=== PATIENT | male | born 1960 | race Caucasian/White ===

== ENCOUNTER 2017-03-24 21:08 | Emergency (ER) | payer BC | END 2017-03-24 21:37 | disposition home or self-care (01) | LOC: SCSER 21:08 | DX: B02.9 Zoster without complications (principal); I10 Essential (primary) hypertension | CPT/HCPCS: 99282 ==

== ENCOUNTER 2017-09-05 09:42 | Outpatient (CLI) | payer OTHER ==
--- NOTE | 2017-09-05 14:12 | PET ---
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 Exam requested for initial staging. TECHNIQUE: PET scanning with CT attenuation correction was performed from the vertex through the proximal thighs following the intravenous administration of 15.3 mCi [id number] in the left antecubital fossa. Imaging was performed after an uptake interval of 70 minutes. COMPARISON: None. CORRELATION: None. FINDINGS: There is increased uptake in the region of the epiglottis with a SUV of 5.5. No kurtis hypermetabolism seen in the neck, chest, abdomen or pelvis. No hypermetabolic pulmonary nodules, liver, adrenal, or skeletal lesions are identified. There is physiologic activity in the brain, GI and tracts. The CT scan used for attenuation correction demonstrates no evidence of pleural effusions or ascites. IMPRESSION: No evidence of metastatic disease. POS: [facility]
== END 2017-09-05 09:43 | disposition home or self-care (01) ==
LOC: PET 09:42
PROVIDERS: ATTEND Radiology Radiation Oncology
DX: C32.1 Malignant neoplasm of supraglottis (principal)
CPT/HCPCS: 78815; A9552